=== PATIENT | male | born 1995 | race Caucasian/White ===

== ENCOUNTER 2022-03-05 16:35 | Emergency (ER) | payer OTHER ==
[~2022-03-05] VITALS: Ht 180.3 cm; Wt 90.9 kg
[2022-03-05] MEDS ORDERED: ACETAMINOPHEN 500 MG TABLET PO ONE (17:00)
[2022-03-05 17:20] LABS: COVID AG,FIA SOURCE NASOPHARYNGEAL
[2022-03-05 17:44] LABS: RAPID GROUP A STREP POSITIVE (NEGATIVE)
[2022-03-05 17:49] LABS: INFLUENZA TYPE A NEGATIVE FOR TYPE A (NEGATIVE); INFLUENZA TYPE B NEGATIVE FOR TYPE B (NEGATIVE)
[2022-03-05] MEDS ORDERED: PENICILLIN G BENZATHINE LA 1,200,000 UNITS/2 ML SYRINGE IM ONE (18:00)
[2022-03-05] MEDS ORDERED: IBUPROFEN 600 MG TABLET PO ONE (18:00)
[2022-03-05] MEDS ORDERED: DEXAMETHASONE SOD PHOS 4 MG/ML 5 ML VIAL IM ONE (18:00)
[2022-03-05] MEDS ORDERED: AZIT250T9 PO (18:51)
[2022-03-05 19:55] VITALS: BP 123/72
== END 2022-03-05 20:00 | disposition home or self-care (01) ==
LOC: EDUNIT# 16:35 → EMS 16:40
DX: J02.0 Streptococcal pharyngitis (principal); J18.9 Pneumonia, unspecified organism; R11.0 Nausea; F84.0 Autistic disorder; Z20.822 Contact with and (suspected) exposure to COVID-19
CPT/HCPCS: 71045; 87426; 87430; 87804; 96372; 99284; J0561; J1100

== ENCOUNTER 2022-11-10 08:19 | Emergency (ER) | payer OTHER ==
[~2022-11-10] VITALS: Ht 182.9 cm; Wt 90.9 kg
[~2022-11-10 08:19] MED LIST: AZIT250T9 PO
[2022-11-10] MEDS ORDERED: ONDANSETRON HCL 4 MG TABLET PO ONE (08:30)
[2022-11-10] MEDS ORDERED: ACETAMINOPHEN 500 MG TABLET PO ONE (08:30)
[2022-11-10] MEDS ORDERED: TRAZ150T80 PO (08:47)
[2022-11-10] MEDS ORDERED: TRAZ150T79 PO (08:47)
[2022-11-10] MEDS ORDERED: GABA-1181 PO (08:47)
[2022-11-10] MEDS ORDERED: FLUO20CA36 PO (08:47)
[2022-11-10 08:48] LABS: BASOPHILS % (AUTO) 0.5 % (0.0-2.0); EOSINOPHILS % (AUTO) 2.1 % (1.0-6.0); HEMATOCRIT 43.5 % (41-53); HEMOGLOBIN 15.1 g/dL (13.5-17.5); LYMPHOCYTES # (AUTO) 1.2 K/uL (1.0-4.8); LYMPHOCYTES % (AUTO) 19.6 % (22.0-44.0); MEAN CORPUSCULAR HEMOGLOBIN 31.2 pg (26.0-34.0); MEAN CORPUSCULAR HGB CONC 34.6 G/dL (31.0-37.0); MEAN CORPUSCULAR VOLUME 90 fL (80-100); MONOCYTES # (AUTO) 0.9 K/uL (0.1-1.0); MONOCYTES % (AUTO) 13.8 % (2.0-9.0); NEUTROPHILS # (AUTO) 3.9 K/uL (1.8-7.7); PLATELET COUNT (AUTO) 272 K/uL (150-450); RED BLOOD CELL COUNT(AUTO) 4.82 MIL/uL (4.50-5.90); RED CELL DISTRIBUTION WIDTH 12.7 % (11.5-14.5)
[2022-11-10 08:59] LABS: ANION GAP 4 mmol/L (8-16); CALCIUM, TOTAL 8.8 mg/dL (8.8-10.5); CARBON DIOXIDE 31 mmol/L (22-29); CHLORIDE 102 mmol/L (98-107); CREATININE 0.91 mg/dL (0.60-1.30); GLUCOSE,RANDOM 109 mg/dL (70-110); POTASSIUM 4.2 mmol/L (3.5-5.1); SODIUM SERUM 137 mmol/L (136-145); UREA NITROGEN, BLOOD 13 mg/dL (7-18)
[2022-11-10 09:02] LABS: GLOMERULAR FILTR. RATE CALC > 60 mL/min (>60)
[2022-11-10 09:05] LABS: ALANINE AMINOTRANSFERASE 46 U/L (12-78); ALKALINE PHOSPHATASE 73 U/L (46-116); ASPARTATE AMINOTRANSFERASE 23 U/L (15-37); BILIRUBIN,TOTAL 0.5 mg/dL (0.1-1.0); LIPASE 62 U/L (73-393); TOTAL PROTEIN, SERUM 8.4 g/dL (6.4-8.2)
[2022-11-10 09:10] LABS: COVID AG,FIA SOURCE NASOPHARYNGEAL
[2022-11-10 09:40] LABS: INFLUENZA TYPE A NEGATIVE FOR TYPE A (NEGATIVE); INFLUENZA TYPE B NEGATIVE FOR TYPE B (NEGATIVE)
[2022-11-10 09:52] VITALS: BP 114/71
[2022-11-10] MEDS ORDERED: GUAIFDM PO (11:01)
[2022-11-10] MEDS ORDERED: ACET-66 PO (11:01)
[2022-11-10] MEDS ORDERED: ONDA-104 PO (11:01)
== END 2022-11-10 11:25 | disposition home or self-care (01) ==
LOC: EMS 08:21
DX: J06.9 Acute upper respiratory infection, unspecified (principal); F32.A Depression, unspecified; F84.0 Autistic disorder; Z20.822 Contact with and (suspected) exposure to COVID-19
CPT/HCPCS: 99284; 71045; 87426; 80053; 83690; 85025; 87804; 36415; Q0162